=== PATIENT | male | born 1985 | race Two or more races ===

== ENCOUNTER 2024-03-10 14:20 | Emergency (ER) | payer MEDICAID, SELFPAY ==
[2024-03-10 14:48] VITALS: BP 137/78; PULSE 83; RESP 18; TEMP 36.6; O2SAT 99; BMI 28.6
[2024-03-10] MEDS: IBUPROFEN TAB 400 MG TABLET 800 MG PO (14:58)
[2024-03-10] MEDS: DIAZEPAM 5 MG TABLET 10 MG PO (14:58)
--- NOTE | 2024-03-10 15:04 | EDNOTE_ITS ---
ED Back Injury Pain RME/HPI General Chief Complaint: Back Pain/Injury Stated Complaint: BACK PAIN X 0400; NO MEDS TAKEN Time Seen by Provider: 03/10/24 14:51 Arrival date/time: 03/10/24 14:20 39-year-old male presents the emergency department complains of lower back pain patient reports he was lifting today while at work and after lifting he developed pain in his lower back patient reports incident happened at work. Patient reports no saddle anesthesia no loss of bowel or bladder Limitations: no limitations Related Data Previous Rx's ?Medication ?Instructions ?Recorded ibuprofen 600 mg tablet 1 tab PO Q8HR PRN pain #30 tabs 12/04/16 acetaminophen 500 mg capsule 1,000 mg (2 x 500 mg) PO TID #30 03/07/22 caps ibuprofen 800 mg tablet (IBU) 800 mg PO Q8H #20 tabs 02/22/23 Allergies Allergy/AdvReac Type Severity Reaction Status Date / Time No Known Allergies Allergy Verified 02/22/23 07:45 Review of Systems Review of Systems Systems Reviewed: All systems reviewed, normal except as documented Constitutional Constitutional: Reports system reviewed and no additional complaints, except as documented, Denies fever(s) and Denies headache(s) Eyes Eyes: Reports system reviewed and no additional complaints, except as documented and Denies blurry vision ENT Ears, Nose, Mouth, and Throat: Reports system reviewed and no additional complaints, except as documented, Denies headache(s), Denies nasal congestion and Denies nasal discharge Cardiovascular Cardiovascular: Reports system reviewed and no additional complaints, except as documented, Denies chest pain and Denies dyspnea Respiratory Respiratory: Reports system reviewed and no additional complaints, except as documented, Denies chest congestion, Denies cough and Denies dyspnea Gastrointestinal Gastrointestinal: Reports system reviewed and no additional complaints, except as documented and Denies abdominal pain Musculoskeletal Musculoskeletal: Reports system reviewed and no additional complaints, except as documented and Reports back pain Integumentary/Breasts Skin/Breast: Reports system reviewed and no additional complaints, except as documented and Denies rash Neurologic Neurologic: Reports system reviewed and no additional complaints, except as documented, Reports as per HPI and Denies headache(s) Past Medical History Social History SMOKING STATUS: Never smoker ED Exam General Limitations: Present no limitations General appearance: Present alert and in no apparent distress Head Head exam: Present atraumatic Eye Eye exam: Present normal appearance, PERRL and EOMI ENT ENT exam: Present normal exam, normal oropharynx and mucous membranes moist Neck Neck exam: Present normal inspection, full ROM and trachea midline Chest Chest inspection: Present normal inspection and symmetric chest wall rise Respiratory Respiratory exam: Present normal lung sounds bilaterally; Absent respiratory distress Cardiovascular Cardiovascular exam: Present regular rate, normal rhythm and normal heart sounds Abdominal Exam Abdominal exam: Present soft and normal bowel sounds; Absent distention, tenderness, guarding or rebound Extremities Exam Extremities exam: Present normal inspection and full ROM Back Exam Back exam: Present normal inspection, full ROM, muscle spasm and paraspinal tenderness; Absent CVA tenderness (R) or CVA tenderness (L) Neurological Exam Neurological exam: Present alert, oriented X3 and CN II-XII intact Psychiatric Psychiatric exam: Present normal affect and normal mood Skin Skin exam: Present warm, dry, intact and normal color Course Quality Measures none Orders Category Date Time Status Diazepam [Valium] Med 03/10/24 14:54 Discontinued 10 mg PO X1 ONE Ibuprofen Tab [Motrin Tab] Med 03/10/24 14:54 Discontinued 800 mg PO X1 ONE Vital Signs Vital signs: Vital Signs Temperature 97.9 F 03/10/24 14:48 Pulse Rate 83 03/10/24 14:48 Respiratory Rate 18 03/10/24 14:48 Blood Pressure 137/78 H 03/10/24 14:48 Pulse Oximetry (%) 99 03/10/24 14:48 Oxygen Delivery Method Room Air 03/10/24 14:48 O2 saturation 9 9% room air within normal limits Back Pain / Injury MDM Narrative MDM Narrative:: 39-year-old male presents the emergency department complains of lower back pain patient reports he was lifting today while at work and after lifting he developed pain in his lower back patient reports incident happened at work. Patient reports no saddle anesthesia no loss of bowel or bladder On exam patient well-appearing patient does not appear ill or toxic Patient given pain medication X-ray ordered Patient eloped prior to final disposition Patient data External records reviewed:: [facility] previous records Clinical information provided by:: patient Social determinants that could affect healthcare access:: none Patient has the following chronic illnesses:: None How is presenting disease/condition affected by chronic disease/condition?: no chronic disease Evaluation data The following diagnostics were reviewed and interpreted by me:: other (specify) (N/A) Lab and/or radiology exams considered but not ordered:: Radiology ordered Interpretation Summary: Patient left prior to imaging Medications / Prescriptions Medications or Prescriptions considered but not ordered:: Given Medication administrations:: Medication Administration History Discontinued Medications Diazepam (Diazepam 5 Mg Tablet) 10 mg PO X1 ONE Stop: 03/10/24 14:55 Last Admin: 03/10/24 14:58 Dose: 10 mg Documented By: SHIRA Ibuprofen (Ibuprofen Tab 400 Mg Tablet) 800 mg PO X1 ONE Stop: 03/10/24 14:55 Last Admin: 03/10/24 14:58 Dose: 800 mg Documented By: SHIRA Given Consultations Consultation(s) initiated? (list below): No Diagnosis Differential diagnosis back pain/injury: lumbar radiculopathy and strain of lumbar region Most likely diagnosis given after review of the tests above:: Back pain Admission Indicated Admission indicated?: not indicated Admission Request Was there a request for admission?: No Disposition Plan Disposition Plan: Discharge Discharge Attestation Discharge Attestation: The patient and all family members were given an opportunity to ask questions and understood the discharge instructions. Discharge instructions specifically effects, indications for sooner follow up or return to the emergency department, and the expected course of current diagnosis. Patient condition: Stable Discharge Plan Plan Patient Disposition: Elopement Disposition Comment: Stable Prescriptions/Referrals Prescriptions/Med Rec: No Action ibuprofen 600 MG tablet 1 tab PO Q8HR PRN (Reason: pain) Qty: 30 0RF acetaminophen 500 mg capsule 1,000 mg PO TID Qty: 30 0RF ibuprofen [IBU] 800 mg tablet 800 mg PO Q8H Qty: 20 0RF Referrals: No Primary/Family,Physician [Primary Care Provider] - In 1 week Problem List Clinical Impression: Strain of lumbar region, Work related injury Patient/Caregiver Discharge Instructions Education Materials: ED Back Sprain/Strain Print Language: Serbian MD Attestation MD Attestation The patient was seen by the midlevel practitioner. I, the co-signing physician, was present during the entire ER visit. While I did not physically examine the patient, I was available for consultation as needed.
--- NOTE | 2024-03-10 15:04 | PC.NURSE ---
Pt eloped after medication. Pt refusing to get registered and do xrays.
== END 2024-03-10 19:12 | disposition left against medical advice (07) ==
PROVIDERS: Emergency Provider Emergency Medicine
DX: S39.012A Strain of muscle, fascia and tendon of lower back, initial encounter (principal); X50.9XXA Other and unspecified overexertion or strenuous movements or postures, initial encounter; Y99.0 Civilian activity done for income or pay; Z53.29 Procedure and treatment not carried out because of patient's decision for other reasons
CPT/HCPCS: 99281; A9270